=== PATIENT | male | born 1950 | race Two or more races ===

== ENCOUNTER 2021-06-20 18:52 | Emergency (ER) | payer OTHER, MEDICAID ==
[~2021-06-20] VITALS: Ht 167.6 cm; Wt 67.1 kg
[2021-06-20 18:56] VITALS: BP 165/75
[2021-06-20] MEDS ORDERED: KETOROLAC TROMETH 30 MG/ML 1ML VIAL IM ONE (20:30)
== END 2021-06-20 20:40 | disposition home or self-care (01) ==
LOC: ER 18:56
DX: R51.9 Headache, unspecified (principal)
CPT/HCPCS: 96372; 99283; J1885